=== PATIENT | female | born 1945 | race Caucasian/White ===

== ENCOUNTER 2016-05-30 12:05 | Emergency (ER) | payer MEDICARE, OTHER ==
[~2016-05-30] VITALS: Ht 170.2 cm; Wt 105.0 kg
[~2016-05-30 12:05] MED LIST: LISI40TA PO; MELO-253 PO; METO25TA6 PO; PRAM0.256 PO; PROC-4 PO; TRAZ-115 PO; VENL75TA3 PO
[2016-05-30 12:20] VITALS: BP 139/77; PULSE 100; RESP 16; O2SAT 98
--- NOTE | 2016-05-30 12:32 | ED.REPORT ---
HPI-Chest Pain 40 and Over Date of Service May 30, 2016 ED Provider: Travon Bills MD The patient is a 71 year old female w/ a hx of HTN and metastatic colorectal adenocarcinoma presents to the ED due to mid sternum chest pain that began 45 min ago while receiving chemotherapy. Onset occurred after eating some spicy food for lunch. At its worse, her pain was 8/10 and is currently 0/10 at the ED. C/o associated nausea and 1 episode of vomiting. She is prone to acid reflux and takes Famotidine. She describes the sensation as extremely painful and felt like a fist in her chest She has had 3 similar episodes in the past year, but this was the most severe. The pain radiated into her neck and jaw and did not affect her breathing. Pt denies burning, edema, hx of DVT or heart disease. Nursing Notes Stated Complaint: CHEST PRESSURE Chief Complaint: Chest Pain Nursing Notes Reviewed: Yes (Jdguanjia not reconciled) Allergies: Coded Allergies: No Known Allergies (Unverified , 09/24/14) Scheduled Lisinopril (Lisinopril) 40 Mg Tablet 40 MG PO DAILY Meloxicam (Meloxicam) 15 Mg Tablet 15 MG PO DAILY Metoprolol Tartrate (Metoprolol Tartrate) 25 Mg Tablet 50 MG PO BID Pramipexole Dihydrochloride (Pramipexole Dihydrochloride) 0.25 Mg Tablet 0.25 MG PO HS Trazodone (Trazodone) 50 Mg Tablet 50 MG PO HS Venlafaxine (Venlafaxine) 75 Mg Tablet 75 MG PO DAILY Scheduled PRN Prochlorperazine Maleate (Compazine) 10 Mg Tablet 10 MG PO PRN For Nausea General Time Seen by MD: 12:31 Chief Complaint Chest pain Hx Obtained From: Patient Arrived By: Walk-in Sudden in Onset?: Yes Onset Occurred: 31 - 45 minutes ago Symptom Duration: Since onset Location: : Chest left Quality: Burning Radiation: : Jaw: Neck Severity: Current: No pain currently Severity: Maximum: Pain level 8 out of 10 Recent Healthcare: Recent doctor visit Past Medical History Past Medical History Notes: Oncologist Dr. Watson Past Medical History metastatic colorectal adenocarcinoma wild type KRAS microsatellite stable Reports: Cancer, Hypertension Past Surgical History Colon surgery Embolization of hepatic metastases Smoking History Former Smoker Social History Other Social History: Local resident Ambulatory Status Independent Review of Systems Respiratory: Denies: Shortness of breath Cardiovascular: Reports: Chest pain, Denies: Edema GI: Reports: Nausea, Vomiting Complete sys rev & neg: except as marked. Physical Exam Initial Vital Signs Vital Signs (First) Date Time Temp Pulse Resp B/P Pulse Ox O2 Delivery O2 Flow Rate FiO2 05/30/16 12:20 37.5 100 16 139/77 98 Room Air Initial VS: Reviewed, Vital signs normal Head / Eyes: Atraumatic, Normocephalic, PERRL ENT: Mucous membranes moist, Conjunctiva normal, No scleral icterus Neck: Supple, Non-tender, Full range of motion Back: No CVA tenderness Extremities: Vascular intact, Neuro intact, No swelling, No tenderness Skin: Warm, Dry, No cyanosis Psychiatric: Mood/affect normal, Behavior normal, Normal thought content General/Constitutional: Awake, Alert, No acute distress, Cooperative, Not toxic appearing Respiratory / Chest: Atraumatic, Breath sounds NL, No respiratory distress catheter in chest Cardiovascular: Heart rate NL, Regular rhythm, Heart sounds NL Abdomen: Atraumatic, Soft, Non-tender Neck: No adenopathy tenderness along neck Upper Extremity / MS: Full range of motion, No swelling moving arm reproduces pain Interpretation & Diagnostics Lab Results Interpretation Result Diagram: 05/30/16 1340 05/30/16 1346 Test 05/30/16 13:40 05/30/16 13:46 White Blood Count 5.6th/mm3 (3.8-10.1) Red Blood Count 4.25mil/mm3 (3.90-5.20) Hemoglobin 13.3g/dL (12.0-15.6) Hematocrit 39.7% (35.0-46.0) Mean Corpuscular Volume 93.4fL (81-100) Mean Corpuscular Hemoglobin 31.3pg (27.0-35.0) Mean Corpuscular Hemoglobin Concent 33.5% (32.0-37.0) Red Cell Distribution Width 17.3% (12.3-15.4) Platelet Count 176bil/L (150-400) Neutrophils (%) (Auto) 92.3% (40-74) Lymphocytes (%) (Auto) 5.0% (14-46) Monocytes (%) (Auto) 2.3% (4-12) Eosinophils (%) (Auto) 0.2% (0-5) Basophils (%) (Auto) 0% (0-3) Sodium Level 137mEq/L (134-144) Potassium Level 4.3mEq/L (3.5-5.2) Chloride Level 102mEq/L (97-108) Carbon Dioxide Level 21mmol/L (18-29) Blood Urea Nitrogen 6mg/dL (8-27) Creatinine 0.47mg/dL (0.57-1.00) Estimat Glomerular Filtration Rate 189mL/min (>59) Glucose Level 196mg/dL (60-99) Calcium Level 8.6mg/dL (8.5-10.1) Total Bilirubin 0.9mg/dL (0.0-1.2) Aspartate Amino Transf (AST/SGOT) 45U/L (0-50) Alanine Aminotransferase (ALT/SGPT) 51U/L (0-32) Alkaline Phosphatase 457U/L (25-165) Troponin T < 0.010ug/L (0.0-0.011) Total Protein 6.2g/dL (6.4-8.4) Albumin 3.4g/dL (3.4-5.0) Lab Results Interpretation: CBC normal CMP mild hyperglycemia and liver function tests abnormalities-chronic Troponin negative X-Ray Chest Interpretation Chest Xray Interpretation: IMPRESSION: No acute cardiopulmonary disease. Dictated by: Roberto Dunham RR Interpreted: Nicol Young MD on 05/30/2016 at 13:15 Transcribed by: JARRET on 05/30/2016 at 13:17 View: Portable Interpretation / Wet Read by: Interpret - Radiologist Re-Eval/Medical Decision Med Decision/Clinical Course This is a 62-year-old female also receives [facility] for metastatic colorectal adenocarcinoma who presents complaining what she said was a severe episode reflux. She reports she has had intermittent episodes like this over the past, Or burning her rate up into the the throat. She normally takes famotidine which works well for this symptom, but she did not have a yet she takes it with her morning medicines and did not take them because she had scheduled chemotherapy today. She denies any exertional component, shortness of breath, diaphoresis, palpitations. Resolved now. There were very short in duration. She has no prior history of cardiac disease. Patient appears well in no distress or discomfort on exam. His no physical exam findings of venous thromboembolism on exam and no clinical features of her history really suggestive of embolism.. Her EKG is normal. She requested receive a single dose of famotidine in the department. Since immediately did not wish to stay and wants return that she scheduled for afternoon chemotherapy. Systolic clinical case for reflux, but I have explained that I can not excluce a cardiac etiology without further investigation. He permitted lab to be drawn, and an x-ray but did not wish to wait for results and signed out. He indicated a call of the labs were abnormal. More importantly have explained that if the patient has recurrent symptoms or any atypical features she needs return to the emergency department reevaluation. She is agreeable with this. The patient makes a reasonable clinical argument for possible reflux, but does understand that a cardiac cause cannot be excluded at this time. Source of Hx: Old records Time of Eval: 14:09 Patient Status: Condition unchanged Re-Evaluation/Progress Note: Pt rechecked. Pt is discharged to finish her chemotherapy appointment. Will call pt later today with lab results. Chest x-ray is unremarkable. Differential Diagnosis: Negative: Dysrhythmia, GERD, Pneumomediastinum, Pneumonia, Pneumothorax, Pulmonary edema, Pulmonary embolism Counseled Regarding: Diagnosis, Lab results, Need for follow-up, When/why to return to ED Discharge & Departure Primary Impression: Chest pain Chest pain type: unspecified Qualified Code: R07.9 - Chest pain, unspecified Disposition: Home Discharge Condition All VS Reviewed: Yes Condition: Stable Referrals: Fabby Sanchez PA-C (PCP) Tosha Attestation Portion of this note were transcribed by Joy Keating. I, Dr. Bills, personally performed the history, physical exam, and medical decision-making: I reviewed and confirmed the accuracy for the information in the transcribed note. Signed by: tosha Devlin, 05/30/16 1500 copies to: Fabby Sanchez PA-C, Matthew F MD May 30, 2016 12:32 Joy Keating May 30, 2016 12:44
--- NOTE | 2016-05-30 13:17 | DRSVH ---
PROCEDURE: X-RAY CHEST ONE VIEW, PORTABLE ([id number]) INDICATIONS: CHEST PAIN TECHNIQUE: One view of the chest was acquired. COMPARISON: [facility], [place], PET NECK TO MID THIGH STD, 05/14/2016, 8:37. [facility], [place], PET NECK TO MID THIGH STD, 02/01/2016, 9:04. [facility], CT, CT CHEST ABD P AMADO W CON, 09/28/2015, 12:01. FINDINGS: Surgical changes and devices: Stable position left chest port. Lungs and pleura: Bilateral pulmonary nodules secondary to metastatic disease redemonstrated and inte rstitial prominence not significantly changed. Mediastinum: Mediastinal contours appear normal. Heart size is normal. Bones and chest wall: No suspicious bony lesions. Overlying soft tissues appear unremarkable. IMPRESSION: No acute cardiopulmonary disease. Dictated by: Roberto Dunham A Interpreted: Nicol Young MD on 05/30/2016 at 13:15 Transcribed by: JARRET on 05/30/2016 at 13:17 Approved by: Nicol Young MD, PhD on 05/30/2016 at 17:01
[2016-05-30 13:51] LABS: BASOPHILS % (AUTO) 0 % (0-3); EOSINOPHILS % (AUTO) 0.2 % (0-5); MONOCYTES % (AUTO) 2.3 % (4-12); Mean Corpuscular Hemoglobin 31.3 pg (27.0-35.0); Mean Corpuscular Volume 93.4 fL (81-100); NEUTROPHILS % (AUTO) 92.3 % (40-74); Platelet Count 176 bil/L (150-400)
[2016-05-30 14:18] LABS: TROPONIN T < 0.010 ug/L (0.0-0.011)
[2016-05-30 14:21] VITALS: BP 144/88; PULSE 115; RESP 21; O2SAT 94
[2016-05-30 14:30] LABS: Magnesium 1.8 mg/dL (1.6-2.6)
== END 2016-05-30 14:23 | disposition home or self-care (01) ==
LOC: EDBD 12:05 → SED 12:05
DX: R07.9 Chest pain, unspecified (principal); I10 Essential (primary) hypertension; Z85.038 Personal history of other malignant neoplasm of large intestine; Z87.891 Personal history of nicotine dependence

== ENCOUNTER 2016-06-27 09:12 | Emergency (ER) | payer MEDICARE, OTHER ==
[~2016-06-27] VITALS: Ht 167.6 cm; Wt 100.5 kg
[2016-06-27 09:18] VITALS: BP 153/71; PULSE 77; RESP 14; O2SAT 92
--- NOTE | 2016-06-27 09:28 | ED.REPORT ---
HPI-Dyspnea / Wheezing Date of Service Jun 27, 2016 ED Provider: Eliecer Kaufman MD Pt is a 70 y/o female w/ a hx of metastatic colorectal CA on chemotherapy (last treatment 2 weeks ago), HTN, prior asthma, presenting to the ED by request of her oncologist Dr. Jessica c/o SOB onset 1 week ago. Her SOB is significantly exacerbated by exertion and is relieved by rest. She has also been experiencing seconds long episodes of sharp left-sided CP which radiates to the left arm. Pt denies fever, chills, cough, wheezing, abdominal pain, nausea, vomiting. She states she experienced 2 years of "adult stress asthma" previously which caused her to be similarly dyspneic on exertion, but at that time she was experiencing coughing and wheezing. The patient does not smoke cigarettes. Oncologist: Dr. Jessica Nursing Notes Stated Complaint: SOB Chief Complaint: Respiratory Distress Nursing Notes Reviewed: Yes Allergies: Coded Allergies: No Known Allergies (Unverified , 09/24/14) Scheduled Lisinopril (Lisinopril) 40 Mg Tablet 40 MG PO DAILY Meloxicam (Meloxicam) 15 Mg Tablet 15 MG PO DAILY Metoprolol Tartrate (Metoprolol Tartrate) 25 Mg Tablet 50 MG PO BID Pramipexole Dihydrochloride (Pramipexole Dihydrochloride) 0.25 Mg Tablet 0.25 MG PO HS Trazodone (Trazodone) 50 Mg Tablet 50 MG PO HS Venlafaxine (Venlafaxine) 75 Mg Tablet 75 MG PO DAILY Scheduled PRN Prochlorperazine Maleate (Compazine) 10 Mg Tablet 10 MG PO PRN For Nausea General Time Seen by MD: 09:26 Chief Complaint Shortness of breath Hx Obtained From: Patient, Primary care provider Arrived By: Walk-in Sudden in Onset?: No Onset Occurred: 1 week ago Symptom Duration: Since onset Severity: Current: No pain currently Severity: Maximum: No pain Recent Healthcare: Recent doctor visit Past Medical History Past Medical History Notes: Oncologist: Dr. Jessica Past Medical History Metastatic colorectal adenocarcinoma wild type KRAS microsatellite stable Hypertension "2 years of adult stress asthma" Denies: Coronary artery disease, Diabetes mellitus, Stroke Denies: Kidney disease Past Surgical History Colon surgery Embolization of hepatic metastases Smoking History Former Smoker Social History Other Social History: Local resident Ambulatory Status Independent Review of Systems Constitutional: Denies: Chills, Fever Respiratory: Reports: Dyspnea on exertion, Shortness of breath, Denies: Non-productive cough, Wheezing Cardiovascular: Reports: Chest pain, Denies: Edema Complete sys rev & neg: except as marked. GI: Denies: Abdominal pain, Nausea, Vomiting Physical Exam Initial Vital Signs Vital Signs (First) Date Time Temp Pulse Resp B/P Pulse Ox O2 Delivery O2 Flow Rate FiO2 06/27/16 09:18 36.9 77 14 153/71 92 Room Air 06/27/16 11:26 2 Initial VS: Reviewed, Vital signs abnormal Head / Eyes: Atraumatic, Normocephalic, PERRL ENT: Mucous membranes moist, Conjunctiva normal, No scleral icterus Abdomen / GI: Soft, Non-tender, No guarding, No rebound, No distention Extremities: Vascular intact, Neuro intact, No swelling, No tenderness Skin: Warm, Dry, No cyanosis Neurologic: Alert, Oriented, Nonfocal Psychiatric: Mood/affect normal, Behavior normal, Normal thought content General/Constitutional: Awake, Alert, No acute distress, Cooperative, Not toxic appearing Neck: Atraumatic, Supple, No meningismus, Full range of motion Respiratory / Chest: Atraumatic, Breath sounds NL, Breath sounds = bilat, No respiratory distress, No rales, No rhonchi, No wheezing, No retractions, No stridor, No chest tenderness, No chest wall deformity, No crepitus Cardiovascular: Heart rate NL, Regular rhythm, Heart sounds NL, No gallop, No murmurs, No rubs, Cap refill not delayed, Peripheral circulation NL Interpretation & Diagnostics Lab Results Interpretation Result Diagram: 06/27/16 1040 06/27/16 1040 Test 06/27/16 10:40 06/27/16 10:50 White Blood Count 5.0th/mm3 (3.8-10.1) Red Blood Count 4.30mil/mm3 (3.90-5.20) Hemoglobin 13.9g/dL (12.0-15.6) Hematocrit 41.0% (35.0-46.0) Mean Corpuscular Volume 95.3fL (81-100) Mean Corpuscular Hemoglobin 32.3pg (27.0-35.0) Mean Corpuscular Hemoglobin Concent 33.9% (32.0-37.0) Red Cell Distribution Width 17.9% (12.3-15.4) Platelet Count 173bil/L (150-400) Neutrophils (%) (Auto) 68.0% (40-74) Lymphocytes (%) (Auto) 13.5% (14-46) Monocytes (%) (Auto) 16.3% (4-12) Eosinophils (%) (Auto) 1.8% (0-5) Basophils (%) (Auto) 0.2% (0-3) Sodium Level 136mEq/L (134-144) Potassium Level 3.7mEq/L (3.5-5.2) Chloride Level 98mEq/L (97-108) Carbon Dioxide Level 22mmol/L (18-29) Blood Urea Nitrogen 8mg/dL (8-27) Creatinine 0.44mg/dL (0.57-1.00) Estimat Glomerular Filtration Rate 204mL/min (>59) Glucose Level 119mg/dL (60-99) Calcium Level 8.8mg/dL (8.5-10.1) Total Bilirubin 1.3mg/dL (0.0-1.2) Aspartate Amino Transf (AST/SGOT) 40U/L (0-50) Alanine Aminotransferase (ALT/SGPT) 27U/L (0-32) Alkaline Phosphatase 439U/L (25-165) Troponin T < 0.010ug/L (0.0-0.011) Pro-B-Type Natriuretic Peptide 624.6pg/mL (0-301) Total Protein 6.1g/dL (6.4-8.4) Albumin 3.0g/dL (3.4-5.0) Hold Urrutia Top Tube Received (Received) ECG Interpretation ECG Interpretation: Sinus rhythm rate 72 Nonspecific T abnormalities, anterior leads Time: 10:46 Interpreted by: ED physician Normal ECG Interpretation: No acute ischemic changes CT Chest Interpretation IMPRESSION: 1. No pulmonary embolus. 2. Right basilar consolidation which could represent atelectasis or pneumonia. Centrally obstructing metastatic lesion causing post obstructive atelectasis or pneumonia cannot be excluded. 3. Bilateral lung nodules are poorly visualized due to atelectasis. The well-visualized lung nodules appear to have increased slightly in size compared to 09/28/2015. No definite new lung nodules are identified. 4. Hepatic metastatic lesions increased in size compared to 09/28/2015. 5. Cardiomegaly. 6. Trace right-sided pleural effusion. Dictated by: Nicol Young MD, PhD on 06/27/2016 at 10:46 Approved by: Nicol Young MD, PhD on 06/27/2016 at 10:59 Study type: CT pulm angiogram Interpretation / Wet Read by: Interpret - Radiologist Re-Eval/Medical Decision Consultation : Referral / Consult Name: Kyara Jessica MD Consulted With: Tobacco Fl[employer]orer Call Returned at: 12:12 Note: We discussed the case in detail. He would like the patient to return to oncology for chemotherapy today. Counseled Regarding: Diagnosis, Lab results, Need for follow-up, When/why to return to ED Discharge & Departure Impression: Primary Impression: Dyspnea Disposition: Home Discharge Condition All VS Reviewed: Yes Condition: Stable Additional Instructions: No dangerous cause for your symptoms was discovered today. Specifically, we have excluded due new tumor in the chest and pulmonary embolism today. There is also no evidence of acute infection. Your vital signs, oxygenation and laboratory data are all relatively reassuring. The abnormalities that we do discover are consistent with your known colon cancer. Go directly to the cancer care center now for chemotherapy today under the care of Dr. Jessica Referrals: Fabby Sanchez PA-C (PCP) Aliza Attestation Portions of this note were transcribed by Akshat Garcia. I, Dr. Kaufman, personally performed the history, physical exam and medical decision-making; I reviewed and confirmed the accuracy of the information in the transcribed note. Signed by Aliza Adorno, 06/27/16 - 1000 copies to: Fabby Sanchez PA-C, Kirk H MD Jun 27, 2016 09:28 AKSHAT GARCIA Jun 27, 2016 09:37
[2016-06-27 10:56] LABS: BASOPHILS % (AUTO) 0.2 % (0-3); EOSINOPHILS % (AUTO) 1.8 % (0-5); MONOCYTES % (AUTO) 16.3 % (4-12); Mean Corpuscular Hemoglobin 32.3 pg (27.0-35.0); Mean Corpuscular Volume 95.3 fL (81-100); Platelet Count 173 bil/L (150-400)
--- NOTE | 2016-06-27 11:01 | DRSVH ---
PROCEDURE: CT ANGIO CHEST PULMONARY EMBOLISM ([id number]) INDICATIONS: dyspnea, hx. COlon CA TECHNIQUE: After the administration of intravenous contrast, 2 mm thick sections acquired from the pulmonary api kalee to the posterior costophrenic angles. 3-dimensional maximum intensity projection (MIP) coronal a nd sagittal reformats were then acquired through the thorax. For radiation dose reduction, the follo wing was used: automated exposure control, adjustment of mA and/or kV according to patient size. COMPARISON: [facility], CT, CT CHEST ABD PELVIS W CON, 09/28/2015, 12:01. FINDINGS: Image quality: Excellent. Pulmonary arteries: Pulmonary arteries are normal in size, and demonstrate no intraluminal filling d efects to suggest central pulmonary embolism. Lungs and pleura: Patchy atelectasis noted in the dependent portions of the lung bases. Multiple bila teral lung nodules are difficult to assess due to atelectasis, however nodules appear slightly increa sed in size compared to 09/28/15. Reference nodule in the right lower lobe which measured 1.4 cm in pr ior study measures 1.7 cm in the current study (series 11, image 16). Consolidation is noted in the r ight lung base which could represent atelectasis versus pneumonia. A centrally obstructing lesion cau sing right basilar atelectasis or postobstructive pneumonia cannot be excluded. Trace right-sided ple ural fluid collection noted. No pneumothorax. Central and peripheral airways are patent. Mediastinum: Heart size is enlarged, without pericardial effusion. No mediastinal or hilar adenopat hy. Thoracic aorta is normal in caliber and enhancement. Esophagus is normal in caliber, without hi atal hernia. Bones and chest wall: Left chest wall Port-A-Cath is stable compared to prior examination. No suspic ious bony lesions. Ribs and thoracic spine appear intact throughout. Thyroid gland is within normal limits where visualized. No axillary or supraclavicular adenopathy. Abdomen: Presence of a biliary stent noted. Hypoattenuating lesions in the liver compatible with kno wn hepatic metastatic disease. Increased in size.. IMPRESSION: 1. No pulmonary embolus. 2. Right basilar consolidation which could represent atelectasis or pneumonia. Centrally obstructing metastatic lesion causing post obstructive atelectasis or pneumonia cannot be excluded. 3. Bilateral lung nodules are poorly visualized due to atelectasis. The well-visualized lung nodules appear to have increased slightly in size compared to 09/28/2015. No definite new lung nodules are scotty ntified. 4. Hepatic metastatic lesions increased in size compared to 09/28/2015. 5. Cardiomegaly. 6. Trace right-sided pleural effusion. Dictated by: Nicol Young MD, PhD on 06/27/2016 at 10:46 Approved by: Nicol Young MD, PhD on 06/27/2016 at 10:59
[2016-06-27 11:26] VITALS: BP 143/91; PULSE 72; RESP 16; O2SAT 95
[2016-06-27 11:52] LABS: TROPONIN T < 0.010 ug/L (0.0-0.011)
[2016-06-27] MEDS ORDERED: HepLOK Flush 100 unit/mL 5 mL Inj ONE (12:33)
[2016-06-27 12:54] VITALS: BP 141/88; PULSE 70; RESP 16; O2SAT 96
== END 2016-06-27 12:55 | disposition home or self-care (01) ==
LOC: SED 09:12
DX: R06.00 Dyspnea, unspecified (principal); I10 Essential (primary) hypertension; Z87.891 Personal history of nicotine dependence
CPT/HCPCS: 71275; 80053; 83880; 84484; 85025; 93005; 99285; J1642; Q9967